=== PATIENT | female | born 1965 | race African-American/Black ===

== ENCOUNTER 2021-01-15 07:39 | Emergency (ER) | payer MEDICAID ==
[~2021-01-15] VITALS: Ht 167.6 cm; Wt 90.7 kg
[2021-01-15 08:21] VITALS: BP 156/85
[2021-01-15] MEDS ORDERED: CLIN300C8 PO (08:28)
[2021-01-15] MEDS ORDERED: IBUP800T27 PO (08:28)
[2021-01-15] MEDS ORDERED: IBUPROFEN 800 MG TAB PO ONE (08:30)
[2021-01-15] MEDS ORDERED: cefTRIAXone SOD 1,000 MG VL IM ONE (08:30)
== END 2021-01-15 09:06 | disposition home or self-care (01) ==
LOC: ER 07:39
DX: K02.9 Dental caries, unspecified (principal); K21.9 Gastro-esophageal reflux disease without esophagitis; Z87.891 Personal history of nicotine dependence; Z79.1 Long term (current) use of non-steroidal anti-inflammatories (NSAID); Z79.2 Long term (current) use of antibiotics; Z88.0 Allergy status to penicillin
CPT/HCPCS: 96372; 99283; J0696

== ENCOUNTER 2021-01-16 | Emergency (ER) | payer MEDICAID ==
[~2021-01-16] VITALS: Ht 167.6 cm; Wt 90.7 kg
[~2021-01-16] MED LIST: CLIN300C8 PO; IBUP800T27 PO
[2021-01-16] MEDS ORDERED: LORazepam 2MG/ML-1ML VIAL ONE (02:04)
[2021-01-16] MEDS ORDERED: LORazepam 2MG/ML-1ML VIAL IM ONE ×2 (02:15→02:30)
[2021-01-16] MEDS ORDERED: SODIUM CHLORIDE 0.9% 1,000 ML IVB ONE (02:30)
[2021-01-16] MEDS ORDERED: PHENYTOIN IV DILANTIN 500 MG in SODIUM CHL 0.9% 100 ML IV ONE (02:30)
[2021-01-16] MEDS ORDERED: LORazepam 2MG/ML-1ML VIAL IV ONE (02:30)
[2021-01-16 03:08] LABS: Basophils # (auto) 0.1 10 ^3/uL (0-0.2); Basophils % (auto) 0.9 % (0.0-2.0); Eosinophils # (auto) 0.1 10 ^3/uL (0-0.8); Eosinophils % (auto) 0.8 % (0.0-7.0); Hematocrit 41.1 % (36.0-46.0); Hemoglobin 13.1 g/dL (12.2-16.2); Lymphocytes # (auto) 1.7 10 ^3/uL (0.4-5.4); Lymphocytes % (auto) 16.3 % (10.0-50.0); Mean Corpuscular Hemoglobin 27.2 pg (28.0-32.0); Mean Corpuscular Hgb Conc. 31.9 g/dL (32.0-36.0); Mean Corpuscular Volume 85.4 fL (80.0-100.0); Monocytes # (auto) 0.8 10 ^3/uL (0-1.3); Monocytes % (auto) 7.6 % (0.0-12.0); Neutrophils # (auto) 7.8 10 ^3/uL (1.6-8.6); Neutrophils % (auto) 74.4 % (37.0-80.0); Red Blood Cells 4.81 10^6/uL (4.0-5.20); Red Cell Distribution Width 13.8 % (11.8-14.3); White Blood Cell 10.4 10^3/uL (4.4-10.8)
[2021-01-16] MEDS ORDERED: PHENYTOIN SODIUM 50 MG/ML 5ML INJ VIAL IV ONE ×2 (03:11→03:14)
[2021-01-16 03:25] LABS: INR 1.07 (0.9-1.15); Partial Thromboplastin Time 31.2 sec (23.6-33.0)
[2021-01-16 03:32] LABS: Alanine Aminotransferase 31 U/L (13-56); Albumin 3.4 g/dL (3.4-5.0); Anion Gap 7 (5-15); Blood Alcohol < 3.0 mg/dL (0-5); Blood Urea Nitrogen 9 mg/dL (7-18); Calcium 8.8 mg/dL (8.5-10.1); Carbon Dioxide 22 mmol/L (21-32); Chloride 112 mmol/L (98-107); Glucose 117 mg/dL (74-106); Magnesium 2.9 mg/dL (1.6-2.6); Potassium 3.4 mmol/L (3.5-5.1); Sodium 141 mmol/L (136-145)
[2021-01-16 03:35] LABS: Alkaline Phosphatase 159 U/L (45-117); Aspartate Aminotransferase 14 U/L (15-37); BUN/Creatinine Ratio 13.2; Bilirubin, Total 0.4 mg/dL (0.2-1.0); GFR African American 116 mL/min; GFR Non-African American 95 mL/min; Total Protein 8.4 g/dL (6.4-8.2)
[2021-01-16] MEDS ORDERED: LORazepam 2MG/ML-1ML VIAL IV PRN (05:45)
[2021-01-16 08:00] VITALS: BP 135/83
== END 2021-01-16 08:41 | disposition home or self-care (01) ==
LOC: ER
DX: K04.7 Periapical abscess without sinus (principal); R56.9 Unspecified convulsions; Z20.822 Contact with and (suspected) exposure to COVID-19
CPT/HCPCS: 36415; 70450; 70486; 80053; 80164; 80185; 80201; 80320; 83735; 85025; 85610; 85730; 87426; 93005; 96365; 96372; 99285; J1165; J2060

== ENCOUNTER 2021-02-20 09:53 | Emergency (ER) | payer MEDICAID ==
[~2021-02-20] VITALS: Ht 167.6 cm; Wt 88.5 kg
[2021-02-20 11:38] VITALS: BP 120/81
== END 2021-02-20 12:38 | disposition home or self-care (01) ==
LOC: ER 09:53
DX: J45.909 Unspecified asthma, uncomplicated (principal); J20.9 Acute bronchitis, unspecified; K21.9 Gastro-esophageal reflux disease without esophagitis; Z87.891 Personal history of nicotine dependence
CPT/HCPCS: 71045

== ENCOUNTER 2021-04-06 08:41 | Inpatient (IN) | payer MEDICAID ==
[~2021-04-06] VITALS: Ht 154.9 cm; Wt 89.0 kg
[2021-04-06 10:09] LABS: Basophils # (auto) 0.1 10 ^3/uL (0-0.2); Basophils % (auto) 1.2 % (0.0-2.0); Eosinophils # (auto) 0.2 10 ^3/uL (0-0.8); Eosinophils % (auto) 3.9 % (0.0-7.0); Hematocrit 36.7 % (36.0-46.0); Hemoglobin 11.8 g/dL (12.2-16.2); Lymphocytes # (auto) 1.5 10 ^3/uL (0.4-5.4); Lymphocytes % (auto) 28.9 % (10.0-50.0); Mean Corpuscular Hemoglobin 27.2 pg (28.0-32.0); Mean Corpuscular Hgb Conc. 32.2 g/dL (32.0-36.0); Mean Corpuscular Volume 84.5 fL (80.0-100.0); Monocytes # (auto) 0.4 10 ^3/uL (0-1.3); Monocytes % (auto) 7.8 % (0.0-12.0); Neutrophils % (auto) 58.2 % (37.0-80.0); Nucleated Red Blood Cells % 0.1 %; Red Blood Cells 4.34 10^6/uL (4.0-5.20); White Blood Cell 5.2 10^3/uL (4.4-10.8)
[2021-04-06 10:19] LABS: Albumin 3.2 g/dL (3.4-5.0); Calcium 8.6 mg/dL (8.5-10.1); Potassium 3.8 mmol/L (3.5-5.1)
[2021-04-06 10:31] LABS: BUN/Creatinine Ratio 16.9; Bilirubin, Total 0.2 mg/dL (0.2-1.0); Total Protein 7.2 g/dL (6.4-8.2)
[2021-04-06] MEDS ORDERED: LORazepam 2MG/ML-1ML VIAL IV ONE ×2 (10:45→11:00)
[2021-04-06] MEDS ORDERED: SODIUM CHLORIDE 0.9% 500 ML IVB ONE (11:00)
[2021-04-06] MEDS ORDERED: SODIUM CHLORIDE 0.9% 1,000 ML IV ONE (11:00)
[2021-04-06] MEDS ORDERED: MORPHINE SULFATE INJECTION 2 MG/ML SYRG IV PRN (14:00)
[2021-04-06] MEDS ORDERED: PHENYTOIN SODIUM 50 MG/ML 2ML VIAL IV SCH (14:00)
[2021-04-06] MEDS ORDERED: LORazepam 2MG/ML-1ML VIAL IV PRN (14:00)
[2021-04-06] MEDS ORDERED: NITROGLYCERIN 0.4 MG SL TAB SL PRN (14:00)
[2021-04-06] MEDS: MAGNESIUM SULFATE 1GM/100ML 100 ML IV SCH ×2 (15:24→15:47)
[2021-04-06] MEDS: SOD CHL 0.45% WITH 20MEQ KCL 1,000 ML IV SCH (15:24)
[2021-04-06] MEDS: LORazepam 2MG/ML-1ML VIAL IV PRN (22:27)
[2021-04-06 22:38] LABS: Urine Bacteria NONE SEEN /hpf (None Seen); Urine Blood Negative /uL (Negative); Urine Specific Gravity 1.018 (1.001-1.035); Urine WBC 2 /hpf (0 - 5)
[2021-04-06 22:52] LABS: Amphetamine Screen, Urine NEGATIVE (NEGATIVE); Barbiturate Scree,Urine NEGATIVE (NEGATIVE); Benzodiazephine Screen, Urine POSITIVE (NEGATIVE); Cannabinoid Screen, Urine POSITIVE (NEGATIVE); Cocaine Screen, Urine NEGATIVE (NEGATIVE); Opiate Scree,Urine NEGATIVE (NEGATIVE); Phencyclidine Screen, Urine NEGATIVE (NEGATIVE)
[2021-04-06 23:00] LABS: Alcohol, Urine < 3.0 mg/dL (0-10)
[2021-04-07] MEDS: SOD CHL 0.45% WITH 20MEQ KCL 1,000 ML IV SCH ×2 (03:20→17:03)
[2021-04-07 06:42] LABS: Albumin 3.1 g/dL (3.4-5.0); Calcium 8.5 mg/dL (8.5-10.1); Magnesium 2.2 mg/dL (1.6-2.6); Potassium 3.7 mmol/L (3.5-5.1)
[2021-04-07 06:45] LABS: BUN/Creatinine Ratio 15.7
[2021-04-07 06:47] LABS: Bilirubin, Total 0.3 mg/dL (0.2-1.0); Total Protein 7.1 g/dL (6.4-8.2)
[2021-04-07] MEDS ORDERED: AMMONIA 0.33 ML INHALANT IN ONE ×2 (08:15→09:00)
[2021-04-07] MEDS: ESLICARBAZEPINE 600 MG PO SCH (13:41)
[2021-04-07] MEDS ORDERED: DULO1CAP5 PO (15:07)
[2021-04-07] MEDS ORDERED: ESLI1TAB4 PO (15:07)
[2021-04-07] MEDS ORDERED: LORA-622 PO (15:07)
[2021-04-07] MEDS ORDERED: CARB200T4 PO (15:07)
[2021-04-07] MEDS ORDERED: DICL75TA3 PO (15:07)
[2021-04-07] MEDS ORDERED: TOPI100T68 PO (15:07)
[2021-04-07] MEDS ORDERED: LINA145C OR (15:07)
[2021-04-07] MEDS ORDERED: PAR20T PO (15:07)
[2021-04-07] MEDS ORDERED: ERGO1CAP23 PO (15:07)
[2021-04-07] MEDS ORDERED: OMEP20TA PO (15:09)
[2021-04-07] MEDS ORDERED: HYDR-4798 PO (15:09)
[2021-04-08 05:00] VITALS: BP 138/94
[2021-04-08] MEDS: SOD CHL 0.45% WITH 20MEQ KCL 1,000 ML IV SCH (06:00)
[2021-04-08] MEDS: LORazepam 2MG/ML-1ML VIAL IV PRN (07:44)
[2021-04-08 08:30] VITALS: BP 130/80
[2021-04-08] MEDS: ESLICARBAZEPINE 600 MG PO SCH (10:57)
[2021-04-08 12:05] VITALS: BP 126/81
[2021-04-08 16:10] VITALS: BP 124/77
== END 2021-04-08 19:00 | disposition home or self-care (01) | DRG 53 ==
LOC: EDBD 08:41 → ER 08:41 → TELE 13:53 → TELE-CENTR 04-07 21:15
PROVIDERS: ADMIT Hospitalist; ATTEND Hospitalist
DX: G40.401 Other generalized epilepsy and epileptic syndromes, not intractable, with status epilepticus (principal); E44.1 Mild protein-calorie malnutrition; E11.9 Type 2 diabetes mellitus without complications; F20.9 Schizophrenia, unspecified; J45.909 Unspecified asthma, uncomplicated; M79.7 Fibromyalgia; F17.210 Nicotine dependence, cigarettes, uncomplicated; F32.A Depression, unspecified; K21.9 Gastro-esophageal reflux disease without esophagitis; Z20.822 Contact with and (suspected) exposure to COVID-19; R09.89 Other specified symptoms and signs involving the circulatory and respiratory systems; Z79.899 Other long term (current) drug therapy; Z82.49 Family history of ischemic heart disease and other diseases of the circulatory system; Z83.3 Family history of diabetes mellitus; Z88.0 Allergy status to penicillin; Z68.37 Body mass index [BMI] 37.0-37.9, adult
CPT/HCPCS: 36415; 70450; 70551; 71045; 80053; 80185; 80307; 81001; 83735; 84443; 85025; 87426; 93005; 95819; 96361; 96374; 96375; G0378; J7060

== ENCOUNTER 2022-05-05 10:15 | Inpatient (IN) | payer MEDICAID ==
[~2022-05-05] VITALS: Ht 170.2 cm; Wt 96.6 kg
[~2022-05-05 10:15] MED LIST changes: -CLIN300C8 PO; +DICL75TA3 PO; +DULO1CAP5 PO; +ERGO1CAP23 PO; +ESLI1TAB4 PO; +HYDR-4798 PO; -IBUP800T27 PO; +LINA145C OR; +LORA-622 PO; +OMEP20TA PO; +PAR20T PO; +TOPI100T68 PO
[2022-05-05 10:54] LABS: Basophils # (auto) 0.1 10 ^3/uL (0-0.2); Basophils % (auto) 0.9 % (0.0-2.0); Eosinophils # (auto) 0.2 10 ^3/uL (0-0.8); Eosinophils % (auto) 2.8 % (0.0-7.0); Hematocrit 36.6 % (36.0-46.0); Lymphocytes # (auto) 2.5 10 ^3/uL (0.4-5.4); Lymphocytes % (auto) 34.3 % (10.0-50.0); Mean Corpuscular Hemoglobin 27.3 pg (28.0-32.0); Mean Corpuscular Hgb Conc. 32.9 g/dL (32.0-36.0); Mean Corpuscular Volume 83.1 fL (80.0-100.0); Monocytes # (auto) 0.5 10 ^3/uL (0-1.3); Monocytes % (auto) 6.3 % (0.0-12.0); Neutrophils # (auto) 4.1 10 ^3/uL (1.6-8.6); Neutrophils % (auto) 55.7 % (37.0-80.0); Nucleated Red Blood Cells % 0.1 %; Red Blood Cells 4.41 10^6/uL (4.0-5.20); Red Cell Distribution Width 15.2 % (11.8-14.3); White Blood Cell 7.3 10^3/uL (4.4-10.8)
[2022-05-05 11:28] LABS: Albumin 3.5 g/dL (3.4-5.0); BUN/Creatinine Ratio 12.2; Bilirubin, Total 0.4 mg/dL (0.2-1.0); Calcium 8.6 mg/dL (8.5-10.1); Potassium 3.8 mmol/L (3.5-5.1); Total Protein 7.2 g/dL (6.4-8.2)
[2022-05-05] MEDS ORDERED: PANTOPRAZOLE 40 MG/10 ML VIAL INJ IV ONE ×2 (14:30→15:30)
[2022-05-05] MEDS ORDERED: PANTOPRAZOLE 40mg/50ML NS AE 50 ML IV ONE (14:30)
[2022-05-05] MEDS ORDERED: IOHEXOL 300 MG/ML 100ML BOTTLE IJ ONE (15:15)
[2022-05-05] MEDS ORDERED: MORPHINE SULFATE INJ 2 MG/ml SYRG IV PRN (15:30)
[2022-05-05] MEDS ORDERED: ONDANSETRON HCL 4 MG/2 ML VIAL IV ONE (15:30)
[2022-05-05] MEDS ORDERED: NITROGLYCERIN 0.4 MG SL TAB SL PRN (15:30)
[2022-05-05] MEDS ORDERED: FAMOTIDINE (10MG/ML) 2ML VL IV ONE (15:30)
[2022-05-05] MEDS ORDERED: LIDOCAINE VISCOUS 2% 15ML UD PO ONE (15:30)
[2022-05-05] MEDS ORDERED: ERGOCALCIFEROL 50,000 UNIT(1.25MG) CAP PO SCH (15:30)
[2022-05-05] MEDS ORDERED: MAALOX PLUS or MAALOX 30 ML PO ONE (15:30)
[2022-05-05] MEDS ORDERED: DEXTROSE (50%) 50ML SYRG IV PRN (16:00)
[2022-05-05] MEDS ORDERED: hydrALAZINE HCL 20 MG/ML VL IV PRN (16:00)
[2022-05-05 16:55] LABS: Urine Bacteria NONE SEEN /hpf (None Seen); Urine Blood Negative /uL (Negative); Urine Mucus FEW (None Seen); Urine Specific Gravity 1.032 (1.001-1.035); Urine WBC 3 /hpf (0 - 5)
[2022-05-05] MEDS: ACCU-CHEK COMFORT CURVE STRIP VI SCH (17:00)
[2022-05-05] MEDS: InsuLIN REG 1unit/0.01ml Soln (100units/ml) SC SCH (17:00)
[2022-05-05] MEDS ORDERED: LISINOPRIL 20 MG TAB PO ONE (17:00)
[2022-05-05] MEDS: SODIUM CHLORIDE 0.9% 1,000 ML IV SCH (18:46)
[2022-05-05 20:48] LABS: Alcohol, Urine < 3.0 mg/dL (0-10); Amphetamine Screen, Urine NEGATIVE (NEGATIVE); Barbiturate Scree,Urine NEGATIVE (NEGATIVE); Benzodiazephine Screen, Urine NEGATIVE (NEGATIVE); Cannabinoid Screen, Urine POSITIVE (NEGATIVE); Cocaine Screen, Urine NEGATIVE (NEGATIVE); Opiate Scree,Urine NEGATIVE (NEGATIVE); Phencyclidine Screen, Urine NEGATIVE (NEGATIVE)
[2022-05-06] VITALS (7 sets, daily range): BP systolic 100–144; BP diastolic 68–86
[2022-05-06] MEDS: TOPIRAMATE 100 MG TAB PO SCH ×3 (00:21→21:57)
[2022-05-06] MEDS: InsuLIN REG 1unit/0.01ml Soln (100units/ml) SC SCH ×5 (00:33→22:00)
[2022-05-06] MEDS: ACCU-CHEK COMFORT CURVE STRIP VI SCH ×5 (00:33→21:58)
[2022-05-06] MEDS: ACETAMINOPHEN 325 MG TAB PO PRN ×2 (04:25→08:38)
[2022-05-06] MEDS: PARoxetine 20 MG TAB PO SCH (06:44)
[2022-05-06 07:12] LABS: Basophils # (auto) 0.1 10 ^3/uL (0-0.2); Basophils % (auto) 0.8 % (0.0-2.0); Eosinophils # (auto) 0.3 10 ^3/uL (0-0.8); Lymphocytes # (auto) 2.6 10 ^3/uL (0.4-5.4); Mean Corpuscular Hgb Conc. 32.2 g/dL (32.0-36.0); Monocytes # (auto) 0.6 10 ^3/uL (0-1.3); Monocytes % (auto) 7.7 % (0.0-12.0); Nucleated Red Blood Cells % 0.1 %
[2022-05-06 07:13] LABS: BUN/Creatinine Ratio 9.9; Calcium 8.3 mg/dL (8.5-10.1); Potassium 3.7 mmol/L (3.5-5.1)
[2022-05-06 07:14] LABS: Eosinophils % (auto) 4.3 % (0.0-7.0); Hematocrit 35.2 % (36.0-46.0); Hemoglobin 11.3 g/dL (12.2-16.2); Lymphocytes % (auto) 35.5 % (10.0-50.0); Mean Corpuscular Hemoglobin 26.8 pg (28.0-32.0); Mean Corpuscular Volume 83.2 fL (80.0-100.0); Neutrophils # (auto) 3.8 10 ^3/uL (1.6-8.6); Neutrophils % (auto) 51.7 % (37.0-80.0); Red Blood Cells 4.23 10^6/uL (4.0-5.20); Red Cell Distribution Width 14.7 % (11.8-14.3); White Blood Cell 7.3 10^3/uL (4.4-10.8)
[2022-05-06 07:17] LABS: Bilirubin, Total 0.2 mg/dL (0.2-1.0); Total Protein 6.9 g/dL (6.4-8.2)
[2022-05-06] MEDS: DULoxetine HCL 30 MG CAP PO SCH (09:37)
[2022-05-06] MEDS: LORATADINE 10 MG TAB PO SCH (09:37)
[2022-05-06] MEDS: PANTOPRAZOLE 40 MG/10 ML VIAL INJ IV SCH (09:38)
[2022-05-06] MEDS: LISINOPRIL 20 MG TAB PO SCH (09:47)
[2022-05-06] MEDS ORDERED: ENOXAPARIN SOD 40 MG/0.4 ML SYRINGE SC SCH (10:00)
[2022-05-06] MEDS: Linaclotide Base (Linzess) 145 MCG PO SCH (10:00)
[2022-05-06 13:45] LABS: INR 0.99 (0.9-1.15)
[2022-05-06] MEDS ORDERED: ONDANSETRON HCL 4 MG/2 ML VIAL IV PRN (15:15)
[2022-05-06] MEDS ORDERED: ONDANSETRON HCL 4 MG/2 ML VIAL IV ONE (15:15)
[2022-05-06] MEDS: SODIUM CHLORIDE 0.9% 1,000 ML IV SCH (15:23)
[2022-05-06] MEDS ORDERED: LIDOCAINE 2%HCL (LOCAL ANESTH.) INJ 20ML MDV ONE (16:05)
[2022-05-06] MEDS ORDERED: MIDAZOLAM HCL 2MG/2ML 2ml VIAL (1mg/ml) ONE (16:15)
[2022-05-06] MEDS ORDERED: fentaNYL CITRATE 100 MCG/2 ML VL ONE (16:15)
[2022-05-06] MEDS ORDERED: PROPOFOL 10 MG/ML 20 ML IV ONE (16:32)
[2022-05-07] MEDS: SODIUM CHLORIDE 0.9% 1,000 ML IV SCH (00:50)
[2022-05-07 05:00] VITALS: BP 143/96
[2022-05-07 05:43] LABS: Basophils # (auto) 0.1 10 ^3/uL (0-0.2); Basophils % (auto) 0.9 % (0.0-2.0); Eosinophils # (auto) 0.3 10 ^3/uL (0-0.8); Hemoglobin 11.6 g/dL (12.2-16.2); Mean Corpuscular Volume 83.9 fL (80.0-100.0); Monocytes # (auto) 0.5 10 ^3/uL (0-1.3); Neutrophils # (auto) 3.3 10 ^3/uL (1.6-8.6); Nucleated Red Blood Cells % 0.1 %; White Blood Cell 6.5 10^3/uL (4.4-10.8)
[2022-05-07 05:46] LABS: Eosinophils % (auto) 5.4 % (0.0-7.0); Hematocrit 35.4 % (36.0-46.0); Lymphocytes # (auto) 2.4 10 ^3/uL (0.4-5.4); Lymphocytes % (auto) 36.6 % (10.0-50.0); Mean Corpuscular Hemoglobin 27.5 pg (28.0-32.0); Mean Corpuscular Hgb Conc. 32.7 g/dL (32.0-36.0); Monocytes % (auto) 7.1 % (0.0-12.0); Red Blood Cells 4.22 10^6/uL (4.0-5.20)
[2022-05-07 06:00] VITALS: BP 118/86
[2022-05-07 06:01] LABS: Potassium 4.3 mmol/L (3.5-5.1)
[2022-05-07 06:15] LABS: BUN/Creatinine Ratio 11.4
[2022-05-07] MEDS: PARoxetine 20 MG TAB PO SCH (06:28)
[2022-05-07] MEDS: InsuLIN REG 1unit/0.01ml Soln (100units/ml) SC SCH ×2 (06:28→11:30)
[2022-05-07] MEDS: ACCU-CHEK COMFORT CURVE STRIP VI SCH ×2 (06:28→11:30)
[2022-05-07 08:00] VITALS: BP 144/77
[2022-05-07 08:35] VITALS: BP 118/86
[2022-05-07] MEDS: LISINOPRIL 20 MG TAB PO SCH (08:47)
[2022-05-07] MEDS: LORATADINE 10 MG TAB PO SCH (08:47)
[2022-05-07] MEDS: DULoxetine HCL 30 MG CAP PO SCH (08:47)
[2022-05-07] MEDS: TOPIRAMATE 100 MG TAB PO SCH (08:47)
[2022-05-07] MEDS: PANTOPRAZOLE 40 MG/10 ML VIAL INJ IV SCH (08:48)
[2022-05-07] MEDS: Linaclotide Base (Linzess) 145 MCG PO SCH (10:00)
[2022-05-07] MEDS ORDERED: PANT40TA2 PO (10:16)
[2022-05-07] MEDS ORDERED: LORazepam 2MG/ML-1ML VIAL IV PRN (10:45)
[2022-05-07 11:26] VITALS: BP_SYST 118; BP_SYST 119; BP_DIAS 81; BP_DIAS 86
[2022-05-07 13:09] VITALS: BP 119/81
== END 2022-05-07 15:40 | disposition home or self-care (01) | DRG 241 ==
LOC: ER 10:15 → TELE 15:28 → TELE-WESTW 22:18
PROVIDERS: ADMIT Nurse Practitioner Family; ATTEND Internal Medicine Geriatric Medicine
PROC: 0DB68ZX Excision of Stomach, Via Natural or Artificial Opening Endoscopic, Diagnostic (ICD-10-PCS; 2022-05-06)
PROC: 0DB98ZX Excision of Duodenum, Via Natural or Artificial Opening Endoscopic, Diagnostic (ICD-10-PCS; principal; 2022-05-06 15:24)
DX: K29.01 Acute gastritis with bleeding (principal); E44.1 Mild protein-calorie malnutrition; G40.409 Other generalized epilepsy and epileptic syndromes, not intractable, without status epilepticus; E11.9 Type 2 diabetes mellitus without complications; E66.01 Morbid (severe) obesity due to excess calories; F20.9 Schizophrenia, unspecified; G35 Multiple sclerosis; I10 Essential (primary) hypertension; J45.909 Unspecified asthma, uncomplicated; K21.9 Gastro-esophageal reflux disease without esophagitis; Z20.822 Contact with and (suspected) exposure to COVID-19; N20.0 Calculus of kidney; Z68.33 Body mass index [BMI] 33.0-33.9, adult; F17.200 Nicotine dependence, unspecified, uncomplicated; K44.9 Diaphragmatic hernia without obstruction or gangrene; M79.7 Fibromyalgia; Z79.899 Other long term (current) drug therapy; Z79.84 Long term (current) use of oral hypoglycemic drugs; Z80.49 Family history of malignant neoplasm of other genital organs; Z82.49 Family history of ischemic heart disease and other diseases of the circulatory system; Z82.5 Family history of asthma and other chronic lower respiratory diseases; Z83.3 Family history of diabetes mellitus; Z88.0 Allergy status to penicillin
CPT/HCPCS: 36415; 71045; 74177; 80048; 80053; 80061; 80307; 81001; 82962; 83036; 83690; 83735; 83880; 84443; 84484; 85025; 85379; 85610; 86850; 86900; 86901; 87426; 93005; 93306; 96374; 96375; C9113; G0378; J2250; J2405; J2704